=== PATIENT | female | born 1930 ===

== ENCOUNTER → 2019-05-06 | Outpatient (CLI) | payer MEDICARE ==
--- NOTE | 2019-05-06 16:30 | KCIC ---
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 FINDINGS: The longitudinal and AP and transverse dimensions of the right kidney are 6.5 cm and 1.7 cm and 2.5 cm respectively. The longitudinal and AP and transverse dimensions of left kidney are 9.0 cm and 3.2 cm and 3.7 cm respectively. No hydronephrosis or renal mass is seen. No perinephric fluid collection is seen. Cortical echogenicity of the left kidney is normal. There is an increase in cortical echogenicity of the right kidney. Urinary bladder is mildly distended. No intraluminal echodensities or masses are seen. Neither ureteral jet is seen. There is distention of the intrahepatic portion of the IVC which measures up to 2.6 cm. No focal aneurysmal dilatation of the abdominal aorta is seen. IMPRESSION: Atrophic echogenic right kidney. 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 No hydronephrosis. Distended IVC which may be due to increase in hydration status of the patient or could be secondary to renal failure with water retention. Electronically signed by: Eleazar Holland MD (05/06/2019 4:27 PM) [id number]
== END | disposition home or self-care (01) ==
LOC: KCIC US 15:33
PROVIDERS: ATTEND Internal Medicine Nephrology
DX: N26.1 Atrophy of kidney (terminal) (principal); N32.89 Other specified disorders of bladder; N18.4 Chronic kidney disease, stage 4 (severe)
CPT/HCPCS: 76770

== ENCOUNTER 2021-02-28 17:20 | Emergency (ER) | payer MEDICARE ==
[2021-03-01] MEDS ORDERED: POTA8CAP19 PO (08:41)
[2021-03-01] MEDS ORDERED: CARV25TA PO (08:41)
[2021-03-01] MEDS ORDERED: CALC0.25 PO (08:41)
[2021-03-01] MEDS ORDERED: ASPI-630 PO (08:41)
[2021-03-01] MEDS ORDERED: FURO-68 PO (08:41)
[2021-03-01] MEDS ORDERED: CHOL5000 PO (08:41)
[2021-03-01] MEDS ORDERED: LOSA-73 PO (08:41)
[2021-03-01] MEDS ORDERED: FURO-69 PO (08:41)
== END 2021-02-28 17:36 | disposition left against medical advice (07) ==
LOC: ER 17:20
DX: R06.02 Shortness of breath (principal); Z53.21 Procedure and treatment not carried out due to patient leaving prior to being seen by health care provider